=== PATIENT | male | born 1990 | race Caucasian/White ===

== ENCOUNTER 2022-06-27 20:36 | Emergency (ER) | payer OTHER, SELFPAY ==
--- NOTE | ~2022-06-27 | XR_ITS ---
XR abdomen/kub 1V 06/28/2022 03:25 INDICATION: Kidney stones TECHNIQUE: KUB COMPARISON: CT dated 06/28/2022 FINDINGS: Bowel gas pattern is normal. Moderate colonic fecal loading. There is no evidence of free a ir, mass, organomegaly, ascites or obstruction. No abnormal calculi are seen. The bones appear inta ct. IMPRESSION: 1: No acute abdominal abnormality identified. Reviewed, dictated and finalized at location A. ERENCE SPECIALIST
--- NOTE | ~2022-06-27 | CT_ITS ---
EXAMINATION: CT abdomen pelvis wo con DATE: 06/28/2022 02:35 INDICATION: Left flank pain. Hematuria. TECHNIQUE: Computed tomography (CT) of the abdomen and pelvis was performed without intravenous contr ast. The dose-length product was 542.54 mGy-cm. Automated exposure control and iterative reconstructi on technique were employed. COMPARISON: None. FINDINGS: Lung bases are unremarkable. Heart size normal. No significant pleural or pericardial effus ion. There is a 4 mm left UPJ stone with mild hydronephrosis and perinephric edema. The liver, spleen, pancreas, adrenal glands and right kidney are unremarkable. Bladder is unremarkabl e. Gallbladder is present. No significant vascular abnormality. No lymphadenopathy. Bladder is disten ded. Nonobstructive bowel pattern. Normal appendix. Small fat-containing umbilical hernia. No acute o sseous abnormality. IMPRESSION: 1. Left UPJ stone measuring 4 mm with mild hydronephrosis. Reviewed, dictated and finalized at location A. ING AID CONSULTANT
[2022-06-27 20:42] VITALS: BP 147/94; PULSE 97; RESP 16; TEMP 36.1; O2SAT 99
[2022-06-27 22:22] VITALS: BP 146/92; PULSE 88; RESP 16; TEMP 37.1; O2SAT 99
--- NOTE | 2022-06-28 00:19 | ED.ABDPAIN ---
HPI - Abdominal Pain General Chief Complaint: Abdominal Pain Stated Complaint: Left flank Pain Time Seen by Provider: 06/27/22 23:53 Source: patient Mode of arrival: ambulatory Limitations: no limitations History of Present Illness HPI narrative: This is a 32 year old male that presents to the ER for left flank pain. Ongoing since this morning. Reports the pain is sharp and constant. It radiates into his abdomen. He was seen at his PCPs office and told he had blood in his urine. He tried to take a [place] that he had leftover at home without relief which prompted him to be seen. Reports some nausea. Denies fever, vomiting or dysuria. Related Data Allergies Allergy/AdvReac Type Severity Reaction Status Date / Time Penicillins Allergy Hives Verified 06/28/22 01:11 Review of Systems Review of Systems: CONSTITUTIONAL: Denies fever GASTROINTESTINAL: Reports abdominal pain, nausea. Denies vomiting, or diarrhea. GENITOURINARY: Reports hematuria. Denies dysuria All systems reviewed & are unremarkable except as noted in HPI and below PMFSH Past Medical History Medical History (Updated 06/28/22 @ 03:09 by Brandi Montemayor PA-C) History of hypertension Social History Social History (Updated 06/28/22 @ 00:23 by Brandi Montemayor PA-C) Smoking status: Never smoker Exam Narrative: GENERAL: Well-appearing, well-nourished, and in no acute distress. HEAD: Normocephalic, atraumatic. EYES: EOMI. CHEST: Clear to auscultation. No respiratory distress. No wheezes rales or rhonchi HEART: Regular rate and rhythm. No murmur heard. Normal peripheral pulses. ABDOMEN: Soft, nontender, nondistended, normal active bowel sounds. No CVA tenderness EXTREMITIES: Normal range of motion. No edema. SKIN: Warm, dry, no rash. NEURO: No focal deficits. Alert and oriented x3. PSYCH: Normal mood and affect Course Course Emergency Course: Patient updated on work-up and agrees with plan of care. Resting comfortably Vital Signs Vital signs: Vital Signs Temperature 97.0 F L 06/27/22 20:42 Pulse Rate 97 06/27/22 20:42 Respiratory Rate 16 06/27/22 20:42 Blood Pressure 147/94 H 06/27/22 20:42 Pulse Oximetry 99 06/27/22 20:42 Oxygen Delivery Room Air 06/27/22 20:42 Temperature 98.8 F 06/27/22 22:22 Pulse Rate 88 06/27/22 22:22 Respiratory Rate 16 06/27/22 22:22 Blood Pressure 146/92 H 06/27/22 22:22 Pulse Oximetry 99 06/27/22 22:22 Oxygen Delivery Room Air 06/27/22 20:42 MDM - Abdominal Pain MDM Narrative Medical decision making narrative: Patient presents to the emergency department for left flank pain ongoing since earlier this morning. He is afebrile and nontoxic-appearing. His vitals are stable. CBC with mild leukocytosis to 10.9. Metabolic panel with some evidence of possible mild dehydration. No previous labs for comparison. Patient was hydrated with IV fluids in the ED. No signs for infection in the urine. CT scan of the abdomen and pelvis shows a left 3 mm UPJ stone with mild left hydronephrosis. Patient updated on work-up. Pain is well controlled. Will be discharged with pain medication and Flomax. Instructed to strain his urine. He will be given follow-up with urology. He was given warnings to return to the ER Differential Diagnosis Differential diagnosis: Likely abdominal pain, calculus of kidney, constipation, diverticulitis and small bowel obstruction Lab Data Attestation: I reviewed the patient's lab results. 06/28/22 00:06 06/28/22 00:06 Labs: Lab Results 06/28/22 06/28/22 06/28/22 Range/Units 00:06 00:06 00:06 WBC 10.9 H (4.5-10.0) K/mm3 RBC 4.89 (4.6-6.20) M/mm3 Hgb 15.5 (14.0-18.0) g/dL Hct 43.7 (42.0-52.0) % MCV 89.4 (80-100) fl MCH 31.7 (26-34) pg MCHC 35.5 (32-36) g/dl RDW 12.3 (11.5-14.5) % Plt Count 192 (150-375) k/mm3 MPV 9.4 (7.4-10.4) fl Immature Gran % (Auto) 0.3 (0-0.5) % Ne
[2022-06-28 00:42] LABS: Mucus Urine Rare /lpf; RBC Urine 0-2 /hpf (0-2); WBC Urine 0-3 /hpf
[2022-06-28 00:48] LABS: Anion Gap 6 mmol/L (8-16); Blood Urea Nitrogen 14 mg/dL (9-20); Calcium 9.5 mg/dL (8.4-10.2); Carbon Dioxide 33 mmol/L (22-30); Chloride 96 mmol/L (98-107); Estimated CRCL calculation 63 ml/min; Estimated Glomerular Filt Rate 50; Glucose 112 mg/dL (65-110); Potassium 3.9 mmol/L (3.4-5.0); Sodium 135 mmol/L (137-145)
[2022-06-28 00:53] LABS: Appearance Urine Clear (Clear); Basophils Percent Auto 0.2 % (0.2-1.2); Bilirubin Urine Negative (Negative); Blood Urine Negative (Negative); Color Urine Yellow (Yellow); Eosinophils Absolute Auto 0.1 K/mm3 (0-0.3); Eosinophils Percent Auto 0.6 % (0-4.4); Glucose Urine UA Negative (Negative); Hematocrit 43.7 % (42.0-52.0); Hemoglobin 15.5 g/dL (14.0-18.0); Immature Granulocyte Absolute 0.03 K/mm3 (0.00-0.031); Immature Granulocyte Percent A 0.3 % (0-0.5); Ketones Urine Negative (Negative); Leukocyte Esterase Ur Negative LEU/UL (Negative); Lymphocytes Absolute Auto 1.39 K/mm3 (0.9-3.2); Lymphocytes Percent Auto 12.8 % (18.3-44.2); Mean Corpuscular HGB Conc 35.5 g/dl (32-36); Mean Corpuscular Hemoglobin 31.7 pg (26-34); Mean Corpuscular Volume 89.4 fl (80-100); Mean Platelet Volume 9.4 fl (7.4-10.4); Monocytes Absolute Auto 0.7 K/mm3 (0.1-0.6); Monocytes Percent Auto 6.2 % (2.6-8.5); Neutrophils Absolute Auto 8.7 K/mm3 (1.3-6.7); Neutrophils Percent Auto 79.9 % (45.5-73.1); Nitrate Urine Negative (Negative); Platelet Count Result 192 k/mm3 (150-375); Protein Urine Negative (Negative); Red Blood Count 4.89 M/mm3 (4.6-6.20); Red Cell Distribution Width 12.3 % (11.5-14.5); Urobilinogen Urine 0.2 mg/dL (<2.0); White Blood Count 10.9 K/mm3 (4.5-10.0)
[2022-06-28 00:55] LABS: Add Urine Microscopic? NO
[2022-06-28] MEDS: ONDANSETRON INJ 4 MG/2 ML VIAL IV PUSH (01:13)
[2022-06-28] MEDS: MORPHINE SULFATE (*CRX) 4 MG/ML INJ IV PUSH (01:13)
[2022-06-28] MEDS: SODIUM CHLORIDE 0.9% IV 1,000 ML 999 ML IV CONT ×2 (01:13→03:44)
[2022-06-28 02:16] LABS: Creatine Kinase 83 U/L (55-170)
[2022-06-28] MEDS: SODIUM CHLORIDE 0.9% IV 500 ML 999 ML IV CONT (03:43)
== END 2022-06-28 03:50 | disposition home or self-care (01) ==
PROVIDERS: Emergency Medicine; Emergency Provider Physician Assistant; PCP Family Medicine
DX: N13.2 Hydronephrosis with renal and ureteral calculous obstruction (principal); I10 Essential (primary) hypertension
CPT/HCPCS: 36415; 74018; 74176; 80048; 81003; 82550; 85025; 96365; 96366; 96375; 99284; J0131; J2270; J2405; J7030; J7040

== ENCOUNTER 2022-07-02 08:36 | Outpatient (CLI) | payer OTHER, SELFPAY ==
--- NOTE | ~2022-07-02 | XR_ITS ---
EXAMINATION: XR abdomen/kub 1V DATE: 07/02/2022 13:04 INDICATION: Kidney stone. TECHNIQUE: A supine view of the abdomen on 2 radiographs was obtained. COMPARISON: CT abdomen and pelvis 06/28/2022 FINDINGS: There are no dilated loops of bowel. There is a 4 mm stone in proximal left ureter. IMPRESSION: 1. 4 mm stone in proximal left ureter. Reviewed, dictated and finalized at location A. BRATION SPECIALIST
== END 2022-07-02 08:37 | disposition home or self-care (01) ==
PROVIDERS: PCP Family Medicine; Visit Provider Urology
DX: N20.1 Calculus of ureter (principal)
CPT/HCPCS: 74018

== ENCOUNTER 2022-07-04 01:12 | Day surgery (SDC) | payer OTHER, SELFPAY ==
[2022-07-02 10:53] VITALS: BMI 26.4
--- NOTE | 2022-07-02 10:59 | PC.NURSE ---
Report to the Outpatient Waiting Room, entrance under the green pavilion located off [facility], at time 0730 on date 07/04/22. Planned Procedure Time: 0930. Time changes happen often and if your time is changed the preop area will call you the afternoon before. - You and your visitor will be asked to self-screen and do not enter if you have any COVID symptoms. - Only one visitor is requested with a max of two and NO children visitors are allowed at this time. - The patient visitor may be requested to leave or wait in car when not with patient due to distancing restrictions. - A mask is optional within the hospital at this time. Patients may have clear liquids (water, carbonated beverages, clear teas, apple juice) until 3 hours prior to surgery with a maximum of 20 ounces. - No food from midnight until time of surgery Take the following medications with a SIP of water the morning of surgery: PAIN PILL IF NEEDED DO NOT STOP ANY OF YOUR OTHER PRESCRIPTION MEDICATIONS PRIOR TO SURGERY ?EXCEPT THE FOLLOWING Medications to discontinue per physician: N/A Date to take last dose: N/A Please no make-up, nail macedonian, hairspray, perfume, deodorant, or body powder the day of surgery. No jewelry (including any body piercings) or valuables the day of surgery, leave them at home. Please take a shower or bath the night before, or the morning of, surgery with an antibacterial soap. Wear comfortable, loose fitting clothing. - Jewelry must be removed prior to entering the operating room. Rings and piercings that are not removed may be cut off. - The hospital will not accept responsibility for valuables. - Please leave all valuables, including medications, at home the day of surgery. If you are going home after surgery, a licensed local [place] truck driver must drive you home. - NO public transportation without another adult if you receive anesthesia. - We recommend that an adult stay with you for 24 hours following discharge. - We also recommend that you do not drive, make important decision, drink alcoholic beverages, or take any drugs that were not prescribed by your health care provider for at least 24 hours after your discharge time. Follow any additional instructions given to you from your surgeon. If you or anyone in your household have experienced Covid symptoms in the past week, please notify your surgeon or the nurse liaison at the phone number below for possible testing. Telephone instructions given to SARI SULLIVAN and asked if any additional questions and then verbalized understanding. Patient advised to call surgeon office or pre surgery nurse liaison [phone] if any additional questions.
[2022-07-04] VITALS (7 sets, daily range): BP systolic 129–148; BP diastolic 91–106; PULSE 60–83; RESP 12–18; TEMP 36.4–36.8; O2SAT 97–100
--- NOTE | ~2022-07-04 | XR_ITS ---
Supine and upright views of the abdomen Clinical history: Lithotripsy COMPARISON: 07/02/2022 Findings: Bowel gas pattern is nonspecific. No evidence for obstruction or free air. Probable 4 mm pr oximal left ureteral stone, likely unchanged from prior exam. Osseous structures are intact. Impression: Probably no significant interval change of 4 mm proximal left ureteral stone. Reviewed, dictated and finalized at [facility]. PLANT SUPERVISOR Impression: Probably no significant interval change of 4 mm proximal left ureteral stone.
--- NOTE | 2022-07-04 05:55 | ECG_ITS ---
Measurements Intervals [place] Rate: 74 P: 41 GA: 153 QRS: -16 QRSD: 94 T: 2 QT: 349 QTc: 388 Interpretive Statements SINUS RHYTHM BORDERLINE LEFTWARD AXIS POSSIBLE RIGHT VENTRICULAR CONDUCTION DELAY [RSR (QR) IN V1/V2] NO PREVIOUS ECG AVAILABLE FOR COMPARISON Electronically Signed On 07-04-2022 14:51:15 NURSE ANESTHETIST by Ta Scott M.D.
[2022-07-04] MEDS: LACTATED RINGERS 1,000 ML 30 ML IV CONT (07:14)
--- NOTE | 2022-07-04 07:20 | WPDHPUPDATE1 ---
History and Physical Update Update Date/Time: 07/04/22 07:20 History and Physical has been reviewed, including an updated exam of the patient. There are NO changes in the patient's condition. Risks, benefits, and alternatives have been discussed and questions answered. Patient agrees to proceed with procedure. Proceed with left ureteral eswl, possible cysto, left rpg, left ureteroscopy with laser, stent placement.
[2022-07-04 07:35] LABS: Prothrombin Time 12.7 Seconds (11.1-14.7)
[2022-07-04 07:51] LABS: Partial Thromboplastin Time 30.9 SECONDS (22.3-36.8)
--- NOTE | 2022-07-04 08:33 | WPDANESEPPF ---
Anes - Initial Pre Proc Eval Procedure: Operation Date: 07/04/22 08:30 Proposed Procedures p Left Extracorporeal Shock Wave Lithotripsy - Tiubrcio Cho MD Date/Time: 07/04/22 08:33 Surgeon: Tiburcio Cho MD Pre Op Diagnosis: left ureteral stone Patient Data Age: 32 Gender: M Height: 1.8 m Weight: 85.6 kg Last Vital Signs Temp 98.2 F 07/04/22 06:59 Pulse 77 07/04/22 06:59 Resp 18 07/04/22 06:59 BP 146/94 H 07/04/22 06:59 Pulse Ox 97 07/04/22 06:59 O2 Del Method Room Air 07/04/22 06:59 Allergies Allergy/AdvReac Type Severity Reaction Status Date / Time Penicillins Allergy Mild Hives Verified 07/04/22 07:37 Home Medications Medication Instructions Recorded Confirmed Type benazepril 10 mg tablet 10 mg PO DAILY #90 tabs 05/05/22 07/04/22 Rx tamsulosin 0.4 mg capsule 0.4 mg PO DAILY #10 caps 06/28/22 07/04/22 Rx hydrocodone 5 mg-acetaminophen 325 1 tablet PO Q6H PRN pain #20 tabs 07/01/22 07/04/22 Rx mg tablet nystatin-triamcinolone 100,000 1 applic topical BID #15 grams 07/01/22 07/04/22 Rx unit/g-0.1 % topical cream Laboratory Tests 07/04/22 07:07 PT 12.7 Seconds Seconds (11.1-14.7) INR 1.0 APTT 30.9 SECONDS SECONDS (22.3-36.8) Patient hx anesthesia problems: none Family hx anesthesia problems: none Results Review: All pre-operative results and documents have been reviewed as part of the pre-operative evaluation. [facility] Past Medical History Medical History BMI between 19-24,adult Family History Family History Father Cerebrovascular accident Hypertension Mother No problems noted. Sibling No problems noted. 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 Informed Consent: The patient's anesthetic plan and its attendant risks and benefits were discussed with the patient/family/POA. Questions were solicited and answers provided to the satisfaction of the patient/family/POA.
[2022-07-04] MEDS: ceFAZolin 2 GM/D5W 50 ML 2 GM/50 ML BAG IVPB (08:38)
--- NOTE | 2022-07-04 09:22 | W.PM.PROC2 ---
Procedure Note - Detailed Date of Procedure 07/04/22 Pre-op Diagnosis left ureteral stone Post-op Diagnosis Same Procedure Performed Lithotripsy of left ureteral calculus Surgeon Tiburcio Cho MD Anesthesia General Description of Procedure Patient is taken to the operative suite correctly identified. Once anesthesia was obtained stone was localized in both planes. Three thousand shocks given the stone. Patient tolerated procedure well without complication was taken recovery room in stable condition. He will follow-up in 10-14 days with KUB. Please send a copy this report to our office. Estimated Blood Loss 0 Drains No Packing No Pathology None sent Complications No immediate complications Condition Stable Disposition PACU
== END 2022-07-04 11:11 | disposition home or self-care (01) ==
PROVIDERS: PCP Family Medicine; Visit Provider Urology
PROC: (CPT 50590; principal; 2022-07-04 08:30)
DX: N20.1 Calculus of ureter (principal); Z87.891 Personal history of nicotine dependence
CPT/HCPCS: 50590; 36415; 74018; 85610; 85730; 93005; J0690; J1100; J2250; J2405; J2704; J3010; J7120

== ENCOUNTER 2022-07-30 06:56 | Outpatient (CLI) | payer OTHER, SELFPAY ==
--- NOTE | ~2022-07-30 | XR_ITS ---
Supine and upright views of the abdomen Clinical history: Left renal stone COMPARISON: 07/04/2022 Findings: Bowel gas pattern is nonspecific. No evidence for obstruction or free air. No abnormal mass lesion or calcification is seen. Osseous structures are intact. Impression: No definite stone visualized. Reviewed, dictated and finalized at [facility]. [employer] PROGRAMMABLE CONTROLLERS Impression: No definite stone visualized.
== END 2022-07-30 06:57 | disposition home or self-care (01) ==
PROVIDERS: PCP Family Medicine; Visit Provider Urology
DX: N20.0 Calculus of kidney (principal)
CPT/HCPCS: 74018

== ENCOUNTER 2023-11-25 15:41 | Outpatient (CLI) | payer OTHER, SELFPAY ==
--- NOTE | ~2023-11-25 | CT_ITS ---
EXAMINATION: CT soft tissue neck w con DATE: 11/25/2023 16:02 INDICATION: Throat pain. TECHNIQUE: Computed tomography (CT) of the neck was performed with 75 mL Omnipaque-350 intravenous co ntrast. Automated exposure control and iterative reconstruction technique were employed. The dose-roly gth product was 416.00 mGy-cm. COMPARISON: None FINDINGS: There are no pathologically enlarged lymph nodes. The appendix is normal. There are small c alcifications in the palatine tonsils. The major salivary glands are normal. The vertebral arteries a nd carotid arteries are normal. There is mild mucosal thickening in the paranasal sinuses. The mastoi d air cells are normal. There is mild kyphosis of cervical spine. IMPRESSION: 1. No etiology for the patient's symptoms. Reviewed, dictated and finalized at location A.
[2023-11-25 15:55] LABS: Estimated Glomerular Filt Rate > 60
== END 2023-11-25 15:42 ==
LOC: MICIMG 15:41
PROVIDERS: PCP Family Medicine; Visit Provider Nurse Practitioner Family
DX: R07.0 Pain in throat (principal)
CPT/HCPCS: 70491; Q9967